=== PATIENT | female | born 1980 | race American Indian/Alaskan Native ===

== ENCOUNTER 2021-03-13 12:35 | Inpatient (IN) | payer OTHER ==
[2021-03-13 14:05] LABS: Hemoglobin 12.2 gm/dl (10.1-14.3); Mean Corpuscular HGB Conc 32 % (30-34); Mean Corpuscular Volume 91 fl (79-97); Platelet Count 310 K/mm3 (140-440); Red Blood Count 4.16 M/mm3 (3.65-5.03); Red Cell Distribution Width 13.7 % (13.2-15.2)
[2021-03-13 14:13] LABS: Bacteria,Urine 2+ /HPF (Negative); Bilirubin,Urine NEG (Negative); Blood,Urine NEG (Negative); Color,Urine Amber (Yellow); Mucus,Urine 3+ /HPF
[2021-03-13 14:21] LABS: Uric Acid 5.4 mg/dL (3.5-7.6)
[2021-03-13 14:23] LABS: Alanine Aminotransferase < 5 units/L (7-56)
--- NOTE | 2021-03-13 15:20 | History and Physical Report ---
History of Present Illness Date of examination: 03/13/21 Chief complaint: IOL for gestation htn and polyhydramnios History of present illness: EDC Calculations by LMP: 03/20/2021 Past History : 4 Term Births: 2 Premature Births: 0 Living Children: 2 Para: 2 Mult. Births: 0 Prev : 0 Aborta: 1 Elect. Ab: 0 Spont. Ab: 1 Ectopics: 0 # 1 Delivery date: 09/11/2002 Weeks Gestation: 40 labor: no Delivery type: Hours of labor: 10 Anesthesia type: epidural Delivery location: DC Sex: Male weight: 6-9 Name: Mike # 2 Delivery date: 05/10/2008 Weeks Gestation: 40 labor: no Delivery type: Hours of labor: 10 Anesthesia type: IV meds Delivery location: DC Infant Sex: Female weight: 7-6 Name: Jasson # 3 Delivery date: 12/09/2019 Delivery type: SAB Comments: No D&C Past Medical History: Negative Past Medical History Past Surgical History: Negative Past Surgical History Family History Summary: Other Family Member - Has No Family History of Ovarvian Cancer - Entered On: 10/01/2020 Other Family Member - Has No Family History of Brain Cancer - Entered On: 10/01/2020 Other Family Member - Has Family History of Hypertension - Entered On: 12/02/2019 Other Family Member - Has Family History of CVA or Stroke - Entered On: 10/01/2020 Other Family Member - Has Family History of Coronary Heart Disease - Entered On: 10/01/2020 Other Family Member - Has Family History Breast Cancer - Entered On: 10/01/2020 Social History: Marital Status: Children: 2 Occupation: [employer] Risk Factors: Smoked Tobacco Use: Former smoker Cigarettes: Yes -- 1/2 pack(s) per day, Year started: 2013 Year quit: 2019 Years Since Last Quit: 1 Smokeless Tobacco Use: Never Passive smoke exposure: no Drug use: no HIV high-risk behavior: no Caffeine use: 0 drinks per day Alcohol use: no Exercise: yes Times per week: 5 Type of Exercise: walk Seatbelt use: 100 % Past Medical History 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 of genital herpes: no Genetic History ADVANCED MATERNAL AGE Congenital Heart Defect: Mom: no Dad: no Navneet Disease: Mom: no Dad: no Thalassemia Mom: no Dad: no Neural Tube Defect Mom: no Dad: no Down's Syndrome Mom: no Dad: no Trev-Sachs Mom: no Dad: no Sickle Cell Disease/Trait Mom: no Dad: no Hemophilia Mom: no Dad: no Muscular Dystrophy Mom: no Dad: no Cystic Fibrosis Mom: no Dad: no Will Chorea Mom: no Dad: no Mental Retardation Mom: no Dad: no Fragile X Mom: no Dad: no Other Genetic/Chromosomal Disorder Mom: no Dad: no Child w/other defect Mom: no Dad: no Enviromental Exposures Xray Exposure: no Medication, drug, or alcohol use since LMP: no Chemical/Other Exposure: no Exposure to Cat Liter: no Hx of Parvovirus (Fifth Disease): no Active Medications: None Current Allergies (reviewed today): No known allergies Past History Past Medical History: other (see HPI) Past Surgical History: other (see HPI) 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 (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) Family/Genetic History: other (see HPI) Social history: no significant social history - Obstetrical History Expected Date of Delivery: 03/20/21 Actual Gestation: 39 Week(s) 0 Day(s) : 4 Para: 2 Hx # Term Pregnancies: 2 Number of Pregnancies: 0 Spontaneous Abortions: 1 Induced : 0 Number of Living Children: 2 Medications and Allergies Allergies Allergy/AdvReac Type Severity Reaction Status Date / Time No Known Allergies Allergy Verified 03/13/21 12:55 Review of Systems All systems: negative - Vital Signs Vital signs: Vital Signs Pulse BP 100 H 130/88 03/13/21 12:58 03/13/21 12:58 Temp Pulse Resp BP Pulse Ox 97.8 F 97 H 20 127/86 98 03/13/21 12:59 03/13/21 15:16 03/13/21 12:59 03/13/21 15:16 03/13/21 15:16 - Physical Exam Breasts: Positive: normal Cardiovascular: Regular rate Lungs: Positive: Normal air movement Abdomen: Positive: normal appearance, soft Genitourinary (Female): Positive: normal external genitalia, normal perenium Vulva: both: normal Vagina: Positive: normal moisture Uterus: Positive: normal size - Obstetrical FHR: auscultation normal Uterine Contraction Monitor Mode: External Cervical Dilatation: 0 Cervical Effacement Percentage: 0 station: -3 Uterine Contraction Frequency (min): 2-3 Uterine Contraction Duration: 60 Uterine Contraction Pattern: Regular Uterine Tone Measurement Phase: Contraction Uterine Contraction Intensity: Mild Results Result Diagrams: 03/13/21 Unknown 03/13/21 Unknown Abnormal lab results 03/13/21 03/13/21 03/13/21 Range/Units Unknown Unknown Unknown WBC 11.3 H (4.5-11.0) K/mm3 ALT < 5 L (7-56) units/L Lactate Dehydrogenase 212 H (91-180) units/L Urine WBC (Auto) 16.0 H (0.0-6.0) /HPF U Epithel Cells (Auto) 25.0 H (0-13.0) /HPF All other labs normal. Assessment and Plan 40y/o @ 39+0 weeks, followed by [facility]. GBS NEG. regular ctx noted on toco. Pt has not had any food or drink but juice with breakfast this morning. Will give ivf bolus and if ctx decrease in frequency, will place cervidil. If ctx remain frequent, will do low dose pitocin tonight. Patient reports labors with first 2 children were 3-4hrs. Discussed serial IOL w/ cervical ripening and close observation of b/p. discussed mag sulfate if indicated. Pain management options also reviewed. All questions addressed. - Patient Problems (1) Gestational hypertension Current Visit: Yes Status: Acute Qualifiers: Trimester: third trimester Qualified Code(s): O13.3 - Gestational [-induced] hypertension without significant proteinuria, third trimester (2) Polyhydramnios Current Visit: Yes Status: Acute Qualifiers: Fetus number: single or unspecified fetus Trimester: third trimester Qual ified Code(s): O40.3XX0 - Polyhydramnios, third trimester, not applicable or unspecified (3) 39 weeks gestation of Current Visit: Yes Status: Acute (4) Circumvallate placenta Current Visit: Yes Status: Acute Qualifiers: Trimester: third trimester Qualified Code(s): O43.113 - Circumvallate placenta, third trimester
[2021-03-13] MEDS ORDERED: LOPERAMIDE 2 MG CAP PO PRN (16:00)
[2021-03-13] MEDS ORDERED: OXYTOCIN 10 UNIT/1 ML INJ IM PRN (16:00)
[2021-03-13] MEDS ORDERED: miSOPROStol 200 MCG TAB PR PRN (16:00)
[2021-03-13] MEDS ORDERED: ePHEDrine SULFATE 50 MG/1 ML INJ IV PRN (16:00)
[2021-03-13] MEDS ORDERED: TERBUTALINE 1 MG/1 ML INJ SUB-Q PRN (16:00)
[2021-03-13] MEDS ORDERED: ONDANSETRON 4 MG/2 ML INJ IV PRN (16:00)
[2021-03-13] MEDS ORDERED: CARBOPROST TROMETHAMINE 250 MCG/1 ML INJ IM PRN (16:00)
[2021-03-13] MEDS ORDERED: MINERAL OIL 30 ML ORAL LIQD PO PRN (16:00)
[2021-03-13] MEDS ORDERED: DINOPROSTONE 10 MG VAG SUPP VG SCH (16:00)
[2021-03-13] MEDS ORDERED: LIDOCAINE (2%) 20 MG/1 ML VIAL 20 ML MDV INFILTRATI SCH (16:00)
[2021-03-13] MEDS ORDERED: OXYTOCIN DRIP 30 UNITS/500 ML BAG IV SCH ×2 (16:00→21:00)
[2021-03-13] MEDS ORDERED: ACETAMINOPHEN 325 MG TAB PO PRN (16:00)
[2021-03-13] MEDS ORDERED: ZOLPIDEM 5 MG TAB PO ONE ×2 (16:54→23:05)
[2021-03-13 18:26] LABS: Hematocrit 34.6 % (30.3-42.9); Hemoglobin 11.3 gm/dl (10.1-14.3); Mean Corpuscular HGB Conc 33 % (30-34); Mean Corpuscular Volume 93 fl (79-97); Platelet Count 271 K/mm3 (140-440); Red Blood Count 3.73 M/mm3 (3.65-5.03); Red Cell Distribution Width 13.8 % (13.2-15.2)
[2021-03-13] MEDS: LACTATED RINGERS 1,000 ML IV SCH (18:47)
[2021-03-13 19:06] LABS: Hepatitis B Surface Antigen Non-Reactive (Negative); Hepatitis C Virus Antibody Non-Reactive (NonReactive)
[2021-03-14] MEDS: LACTATED RINGERS 1,000 ML IV SCH ×3 (01:41→22:57)
--- NOTE | 2021-03-14 07:44 | Progress Note ---
<OTIS LEES - Last Filed: 03/14/21 08:15> Assessment and Plan Pt sitting in bed, denies complaints; reports tolerable contractions felt every few minutes. Risks vs benefits of ROM discussed with pt. Pain management options reviewed. Pitocin currently infusing IV, RN to manage per ordered protocol. Anticipate . - Patient Problems (1) 39 weeks gestation of Current Visit: Yes Status: Acute (2) Circumvallate placenta Current Visit: Yes Status: Acute Qualifiers: Trimester: third trimester Qualified Code(s): O43.113 - Circumvallate placenta, third trimester (3) Gestational hypertension Current Visit: Yes Status: Acute Qualifiers: Trimester: third trimester Qualified Code(s): O13.3 - Gestational [-induced] hypertension without significant proteinuria, third trimester (4) Polyhydramnios Current Visit: Yes Status: Acute Qualifiers: Fetus number: single or unspecified fetus Trimester: third trimester Qualified Code(s): O40.3XX0 - Polyhydramnios, third trimester, not applicable or unspecified Subjective - Subjective Date of service: 03/14/21 Principal diagnosis: IOL @ 39.1 wks, GHTN, Polyhydramnios Patient reports: movement normal, contractions (pt reports tolerating contractions well at this time with slow deep breathing and declines pain interventions), other (denies VALDEZ, vision changes, and chest pain), no new complaints, no loss of fluid, no vaginal bleeding Objective - Vital Signs Vital Signs: Vital Signs - 12hr 03/13/21 03/13/21 03/13/21 19:48 19:53 19:58 Temperature Pulse Rate 98 H 119 H 114 H Respiratory Rate Blood Pressure O2 Sat by Pulse 99 99 100 Oximetry 03/13/21 03/13/21 03/13/21 20:03 20:08 20:13 Temperature Pulse Rate 122 H 158 H 144 H Respiratory Rate Blood Pressure O2 Sat by Pulse 99 98 99 Oximetry 03/13/21 03/13/21 03/13/21 20:18 20:23 20:28 Temperature Pulse Rate 82 95 H 97 H Respiratory Rate Blood Pressure O2 Sat by Pulse 100 99 99 Oximetry 03/13/21 03/13/21 03/13/21 20:33 20:39 20:44 Temperature Pulse Rate 137 H 134 H 176 H Respiratory Rate Blood Pressure O2 Sat by Pulse 98 100 99 Oximetry 03/13/21 03/13/21 03/13/21 20:49 20:54 20:59 Temperature Pulse Rate 152 H 150 H 92 H Respiratory Rate Blood Pressure O2 Sat by Pulse 99 99 99 Oximetry 03/13/21 03/13/21 03/13/21 21:04 21:09 21:14 Temperature Pulse Rate 88 90 91 H Respiratory Rate Blood Pressure O2 Sat by Pulse 97 99 98 Oximetry 03/13/21 03/13/21 03/13/21 21:19 21:24 21:29 Temperature Pulse Rate 146 H 130 H 102 H Respiratory Rate Blood Pressure O2 Sat by Pulse 98 99 99 Oximetry 03/13/21 03/13/21 03/13/21 21:34 21:39 21:44 Temperature Pulse Rate 148 H 123 H 108 H Respiratory Rate Blood Pressure O2 Sat by Pulse 99 99 99 Oximetry 03/13/21 03/13/21 03/13/21 21:49 21:54 21:58 Temperature Pulse Rate 155 H 129 H 91 H Respiratory Rate Blood Pressure 131/78 O2 Sat by Pulse 99 99 Oximetry 03/13/21 03/13/21 03/13/21 21:59 22:04 22:09 Temperature Pulse Rate 125 H 97 H 106 H Respiratory Rate Blood Pressure O2 Sat by Pulse 99 99 99 Oximetry 03/13/21 03/13/21 03/13/21 22:14 22:19 22:24 Temperature Pulse Rate 152 H 119 H 128 H Respiratory Rate Blood Pressure O2 Sat by Pulse 99 99 99 Oximetry 03/13/21 03/13/21 03/13/21 22:29 22:34 22:39 Temperature Pulse Rate 115 H 114 H 122 H Respiratory Rate Blood Pressure O2 Sat by Pulse 99 99 98 Oximetry 03/13/21 03/13/21 03/13/21 22:44 22:49 22:54 Temperature Pulse Rate 99 H 132 H 130 H Respiratory Rate Blood Pressure O2 Sat by Pulse 98 99 98 Oximetry 03/13/21 03/13/21 03/13/21 22:59 23:01 23:04 Temperature Pulse Rate 143 H 125 H 88 Respiratory Rate Blood Pressure 137/86 O2 Sat by Pulse 99 98 Oximetry 03/13/21 03/13/21 03/13/21 23:09 23:14 23:19 Temperature Pulse Rate 97 H 148 H 125 H Respiratory Rate Blood Pressure O2 Sat by Pulse 98 99 100 Oximetry 03/13/21 03/13/21 03/13/21 23:24 23:29 23:34 Temperature Pulse Rate 101 H 108 H 123 H Respiratory Rate Blood Pressure O2 Sat by Pulse 99 99 99 Oximetry 03/13/21 03/13/21 03/13/21 23:39 23:44 23:49 Temperature Pulse Rate 104 H 112 H 114 H Respiratory Rate Blood Pressure O2 Sat by Pulse 97 98 98 Oximetry 03/13/21 03/13/21 03/13/21 23:54 23:55 23:59 Temperature Pulse Rate 125 H 105 H 116 H Respiratory Rate Blood Pressure O2 Sat by Pulse 98 94 98 Oximetry 03/14/21 03/14/21 03/14/21 00:00 00:04 00:09 Temperature 98.1 F Pulse Rate 111 H 117 H 114 H Respiratory 18 Rate Blood Pressure 128/82 O2 Sat by Pulse 98 98 Oximetry 03/14/21 03/14/21 03/14/21 00:14 00:19 00:24 Temperature Pulse Rate 113 H 113 H 102 H Respiratory Rate Blood Pressure O2 Sat by Pulse 99 98 100 Oximetry 03/14/21 03/14/21 03/14/21 00:38 00:43 00:48 Temperature Pulse Rate 132 H 106 H 119 H Respiratory Rate Blood Pressure O2 Sat by Pulse 99 98 99 Oximetry 03/14/21 03/14/21 03/14/21 00:53 00:58 01:00 Temperature Pulse Rate 122 H 110 H 123 H Respiratory Rate Blood Pressure 124/82 O2 Sat by Pulse 98 98 Oximetry 03/14/21 03/14/21 03/14/21 01:03 01:08 01:13 Temperature Pulse Rate 104 H 118 H 122 H Respiratory Rate Blood Pressure O2 Sat by Pulse 98 98 98 Oximetry 03/14/21 03/14/21 03/14/21 01:18 01:30 01:35 Temperature Pulse Rate 129 H 121 H 107 H Respiratory Rate Blood Pressure O2 Sat by Pulse 97 100 97 Oximetry 03/14/21 03/14/21 03/14/21 01:40 01:45 01:50 Temperature Pulse Rate 125 H 111 H 96 H Respiratory Rate Blood Pressure O2 Sat by Pulse 98 98 97 Oximetry 06/03/21 06/03/21 06/03/21 01:55 02:00 02:05 Temperature Pulse Rate 99 H 119 H 109 H Respiratory Rate Blood Pressure 129/81 O2 Sat by Pulse 98 98 98 Oximetry 03/14/21 03/14/21 03/14/21 02:10 02:15 02:20 Temperature Pulse Rate 101 H 108 H 99 H Respiratory Rate Blood Pressure O2 Sat by Pulse 98 98 98 Oximetry 03/14/21 03/14/21 03/14/21 02:25 02:30 02:35 Temperature Pulse Rate 101 H 118 H 98 H Respiratory Rate Blood Pressure O2 Sat by Pulse 98 98 99 Oximetry 03/14/21 03/14/21 03/14/21 02:40 02:45 02:50 Temperature Pulse Rate 101 H 105 H 108 H Respiratory Rate Blood Pressure O2 Sat by Pulse 97 98 99 Oximetry 03/14/21 03/14/21 03/14/21 02:55 03:00 03:05 Temperature Pulse Rate 97 H 97 H 97 H Respiratory Rate Blood Pressure O2 Sat by Pulse 98 99 98 Oximetry 03/14/21 03/14/21 03/14/21 03:07 03:10 03:15 Temperature Pulse Rate 109 H 111 H 91 H Respiratory Rate Blood Pressure 118/78 O2 Sat by Pulse 98 98 Oximetry 03/14/21 03/14/21 03/14/21 03:20 03:25 03:28 Temperature Pulse Rate 102 H 92 H 114 H Respiratory Rate Blood Pressure O2 Sat by Pulse 97 100 91 Oximetry 03/14/21 03/14/21 03/14/21 03:30 03:42 03:47 Temperature Pulse Rate 98 H 102 H 94 H Respiratory Rate Blood Pressure O2 Sat by Pulse 98 98 99 Oximetry 03/14/21 03/14/21 03/14/21 03:52 03:57 04:00 Temperature 98.3 F Pulse Rate 93 H 129 H Respiratory 18 Rate Blood Pressure O2 Sat by Pulse 98 98 Oximetry 03/14/21 03/14/21 03/14/21 04:01 04:02 04:07 Temperature Pulse Rate 94 H 91 H 102 H Respiratory Rate Blood Pressure 141/90 O2 Sat by Pulse 99 97 Oximetry 03/14/21 03/14/21 03/14/21 04:12 04:17 04:22 Temperature Pulse Rate 83 112 H 101 H Respiratory Rate Blood Pressure O2 Sat by Pulse 99 99 96 Oximetry 03/14/21 03/14/21 03/14/21 04:27 04:32 04:37 Temperature Pulse Rate 95 H 131 H 107 H Respiratory Rate Blood Pressure O2 Sat by Pulse 98 99 99 Oximetry 03/14/21 03/14/21 03/14/21 04:42 04:47 04:52 Temperature Pulse Rate 125 H 95 H 110 H Respiratory Rate Blood Pressure O2 Sat by Pulse 98 96 97 Oximetry 03/14/21 03/14/21 03/14/21 04:57 05:00 05:02 Temperature Pulse Rate 94 H 141 H 106 H Respiratory Rate Blood Pressure 132/85 O2 Sat by Pulse 96 98 Oximetry 03/14/21 03/14/21 03/14/21 05:07 05:12 05:17 Temperature Pulse Rate 67 88 106 H Respiratory Rate Blood Pressure O2 Sat by Pulse 98 99 98 Oximetry 03/14/21 03/14/21 03/14/21 05:22 05:27 05:32 Temperature Pulse Rate 103 H 105 H 94 H Respiratory Rate Blood Pressure O2 Sat by Pulse 98 98 97 Oximetry 03/14/21 03/14/21 03/14/21 05:37 05:39 05:42 Temperature Pulse Rate 127 H 89 85 Respiratory Rate Blood Pressure O2 Sat by Pulse 98 94 93 Oximetry 03/14/21 03/14/21 03/14/21 05:46 05:47 05:52 Temperature Pulse Rate 82 108 H 76 Respiratory Rate Blood Pressure O2 Sat by Pulse 93 97 99 Oximetry 03/14/21 03/14/21 03/14/21 05:57 06:00 06:02 Temperature Pulse Rate 128 H 82 102 H Respiratory Rate Blood Pressure 134/74 O2 Sat by Pulse 97 99 Oximetry 03/14/21 03/14/21 03/14/21 06:07 06:12 06:17 Temperature Pulse Rate 102 H 90 103 H Respiratory Rate Blood Pressure O2 Sat by Pulse 100 99 99 Oximetry 03/14/21 03/14/21 03/14/21 06:22 06:27 06:32 Temperature Pulse Rate 121 H 88 66 Respiratory Rate Blood Pressure O2 Sat by Pulse 100 98 99 Oximetry 03/14/21 03/14/21 03/14/21 06:37 06:42 06:47 Temperature Pulse Rate 143 H 140 H 139 H Respiratory Rate Blood Pressure O2 Sat by Pulse 99 99 100 Oximetry 03/14/21 03/14/21 03/14/21 06:59 07:01 07:04 Temperature Pulse Rate 108 H 120 H 115 H Respiratory Rate Blood Pressure 124/82 O2 Sat by Pulse 100 98 Oximetry 03/14/21 03/14/21 03/14/21 07:09 07:14 07:19 Temperature Pulse Rate 87 145 H 75 Respiratory Rate Blood Pressure O2 Sat by Pulse 99 99 100 Oximetry 03/14/21 03/14/21 03/14/21 07:24 07:29 07:34 Temperature Pulse Rate 95 H 146 H 143 H Respiratory Rate Blood Pressure O2 Sat by Pulse 100 98 98 Oximetry 03/14/21 07:39 Temperature Pulse Rate 143 H Respiratory Rate Blood Pressure O2 Sat by Pulse 99 Oximetry - Exam Breasts: deferred Cardiovascular: Regular rate Lungs: Normal air movement Abdomen: Present: normal appearance, soft Uterus: Present: normal. Absent: tenderness FHR: category 1 Uterine Contraction Monitor Mode: External Cervical Dilatation: 2 (per RN) Uterine Contraction Frequency (min): 2-3 Uterine Contraction Pattern: Regular Uterine Tone Measurement Phase: Contraction Uterine Contraction Intensity: Mild Extremities: normal Deep Tendon Reflex Grade: Normal +2 - Labs Labs: Abnormal Labs 03/13/21 03/13/21 03/13/21 18:12 Unknown Unknown WBC 11.4 H 11.3 H ALT Lactate Dehydrogenase Urine WBC (Auto) 16.0 H U Epithel Cells (Auto) 25.0 H 03/13/21 Unknown WBC ALT < 5 L Lactate Dehydrogenase 212 H Urine WBC (Auto) U Epithel Cells (Auto) Laboratory Results - last 24 hr 03/13/21 03/13/21 03/13/21 18:12 18:12 18:12 WBC 11.4 H RBC 3.73 Hgb 11.3 Hct 34.6 MCV 93 MCH 30 MCHC 33 RDW 13.8 Plt Count 271 Creatinine Estimated GFR Uric Acid AST ALT Lactate Dehydrogenase Urine Color Urine Turbidity Urine pH Ur Specific [place] Urine Protein Urine Glucose (UA) Urine Ketones Urine Blood Urine Nitrite Urine Bilirubin Urine Urobilinogen Ur Leukocyte Esterase Urine WBC (Auto) Urine RBC (Auto) U Epithel Cells (Auto) Urine Bacteria (Auto) Urine Mucus Syphilis IgG Antibody Nonreactive Hepatitis A IgM Ab Hep Bs Antigen Hep B Core IgM Ab Hepatitis C Antibody HIV 1&2 Antibody Rapid HIV P24 Antigen Blood Type O POSITIVE Antibody Screen Negative 03/13/21 03/13/21 03/13/21 18:12 Unknown Unknown WBC 11.3 H RBC 4.16 Hgb 12.2 Hct 38.0 MCV 91 MCH 29 MCHC 32 RDW 13.7 Plt Count 310 Creatinine Estimated GFR Uric Acid AST ALT Lactate Dehydrogenase Urine Color [place] Urine Turbidity Cloudy Urine pH 5.0 Ur Specific [place] 1.027 Urine Protein 100 mg/dl Urine Glucose (UA) Neg Urine Ketones Neg Urine Blood Neg Urine Nitrite Neg Urine Bilirubin Neg Urine Urobilinogen 2.0 Ur Leukocyte Esterase Mod Urine WBC (Auto) 16.0 H Urine RBC (Auto) 2.0 U Epithel Cells (Auto) 25.0 H Urine Bacteria (Auto) 2+ Urine Mucus 3+ Syphilis IgG Antibody Hepatitis A IgM Ab Hep Bs Antigen Hep B Core IgM Ab Hepatitis C Antibody HIV 1&2 Antibody Rapid Non react HIV P24 Antigen Non react Blood Type Antibody Screen 03/13/21 03/13/21 Unknown Unknown WBC RBC Hgb Hct MCV MCH MCHC RDW Plt Count Creatinine 0.7 Estimated GFR > 60 Uric Acid 5.4 AST 21 ALT < 5 L Lactate Dehydrogenase 212 H Urine Color Urine Turbidity Urine pH Ur Specific [place] Urine Protein Urine Glucose (UA) Urine Ketones Urine Blood Urine Nitrite Urine Bilirubin Urine Urobilinogen Ur Leukocyte Esterase Urine WBC (Auto) Urine RBC (Auto) U Epithel Cells (Auto) Urine Bacteria (Auto) Urine Mucus Syphilis IgG Antibody Hepatitis A IgM Ab Non-reactive Hep Bs Antigen Non-reactive Hep B Core IgM Ab Non-reactive Hepatitis C Antibody Non-reactive HIV 1&2 Antibody Rapid HIV P24 Antigen Blood Type Antibody Screen <ADALGISA TAM - Last Filed: 03/14/21 09:44> Assessment and Plan Chart reviewed. Cervix 11/10/-3 FHT's cat 1, UC's 1.5-3min, mild-moderate EFW difficult to assess d/t poly, patient feels efw ~ same as her second baby Serial IOL, GHTN/Preeclampsia explained. Options for IOL discussed. She did not get Cervidil and Pitocin was only at 2mu/min d/t UC's overnight. Options reviewed with patient: continue IOL/SAIMA with placement of Cook catheter and pitocin and C/S. Risk associated with delivery were discussed, including but not limited to, bleeding that may require blood transfusion, infection that may be life threatening, injury to adjacent organs specifically bowel or bladder that may require further surgeries, or major vascular injury. She was also informed that when she has had a delivery she may require repeat deliveries for all subsequent pregnancies. She desires sterilization. However at this time she agrees to placement of Cook catheter and Pitocin. Risk with Cook catheter placement were explained questions were encouraged and answered she voiced understanding desires to proceed with placement of Pitocin. Objective - Vital Signs Vital Signs: Vital Signs - 12hr 03/13/21 03/13/21 03/13/21 21:39 21:44 21:49 Temperature Pulse Rate 123 H 108 H 155 H Respiratory Rate Blood Pressure Blood Pressure [Right] O2 Sat by Pulse 99 99 99 Oximetry 03/13/21 03/13/21 03/13/21 21:54 21:58 21:59 Temperature Pulse Rate 129 H 91 H 125 H Respiratory Rate Blood Pressure 131/78 Blood Pressure [Right] O2 Sat by Pulse 99 99 Oximetry 03/13/21 03/13/21 03/13/21 22:04 22:09 22:14 Temperature Pulse Rate 97 H 106 H 152 H Respiratory Rate Blood Pressure Blood Pressure [Right] O2 Sat by Pulse 99 99 99 Oximetry 03/13/21 03/13/21 03/13/21 22:19 22:24 22:29 Temperature Pulse Rate 119 H 128 H 115 H Respiratory Rate Blood Pressure Blood Pressure [Right] O2 Sat by Pulse 99 99 99 Oximetry 03/13/21 03/13/21 03/13/21 22:34 22:39 22:44 Temperature Pulse Rate 114 H 122 H 99 H Respiratory Rate Blood Pressure Blood Pressure [Right] O2 Sat by Pulse 99 98 98 Oximetry 03/13/21 03/13/21 03/13/21 22:49 22:54 22:59 Temperature Pulse Rate 132 H 130 H 143 H Respiratory Rate Blood Pressure Blood Pressure [Right] O2 Sat by Pulse 99 98 99 Oximetry 03/13/21 03/13/21 03/13/21 23:01 23:04 23:09 Temperature Pulse Rate 125 H 88 97 H Respiratory Rate Blood Pressure 137/86 Blood Pressure [Right] O2 Sat by Pulse 98 98 Oximetry 03/13/21 03/13/21 03/13/21 23:14 23:19 23:24 Temperature Pulse Rate 148 H 125 H 101 H Respiratory Rate Blood Pressure Blood Pressure [Right] O2 Sat by Pulse 99 100 99 Oximetry 03/13/21 03/13/21 03/13/21 23:29 23:34 23:39 Temperature Pulse Rate 108 H 123 H 104 H Respiratory Rate Blood Pressure Blood Pressure [Right] O2 Sat by Pulse 99 99 97 Oximetry 03/13/21 03/13/21 03/13/21 23:44 23:49 23:54 Temperature Pulse Rate 112 H 114 H 125 H Respiratory Rate Blood Pressure Blood Pressure [Right] O2 Sat by Pulse 98 98 98 Oximetry 03/13/21 03/13/21 03/14/21 23:55 23:59 00:00 Temperature 98.1 F Pulse Rate 105 H 116 H 111 H Respiratory 18 Rate Blood Pressure 128/82 Blood Pressure [Right] O2 Sat by Pulse 94 98 Oximetry 03/14/21 03/14/21 03/14/21 00:04 00:09 00:14 Temperature Pulse Rate 117 H 114 H 113 H Respiratory Rate Blood Pressure Blood Pressure [Right] O2 Sat by Pulse 98 98 99 Oximetry 03/14/21 03/14/21 03/14/21 00:19 00:24 00:38 Temperature Pulse Rate 113 H 102 H 132 H Respiratory Rate Blood Pressure Blood Pressure [Right] O2 Sat by Pulse 98 100 99 Oximetry 03/14/21 03/14/21 03/14/21 00:43 00:48 00:53 Temperature Pulse Rate 106 H 119 H 122 H Respiratory Rate Blood Pressure Blood Pressure [Right] O2 Sat by Pulse 98 99 98 Oximetry 03/14/21 03/14/21 03/14/21 00:58 01:00 01:03 Temperature Pulse Rate 110 H 123 H 104 H Respiratory Rate Blood Pressure 124/82 Blood Pressure [Right] O2 Sat by Pulse 98 98 Oximetry 03/14/21 03/14/21 03/14/21 01:08 01:13 01:18 Temperature Pulse Rate 118 H 122 H 129 H Respiratory Rate Blood Pressure Blood Pressure [Right] O2 Sat by Pulse 98 98 97 Oximetry 03/14/21 03/14/21 03/14/21 01:30 01:35 01:40 Temperature Pulse Rate 121 H 107 H 125 H Respiratory Rate Blood Pressure Blood Pressure [Right] O2 Sat by Pulse 100 97 98 Oximetry 03/14/21 03/14/21 03/14/21 01:45 01:50 01:55 Temperature Pulse Rate 111 H 96 H 99 H Respiratory Rate Blood Pressure Blood Pressure [Right] O2 Sat by Pulse 98 97 98 Oximetry 03/14/21 03/14/21 03/14/21 02:00 02:05 02:10 Temperature Pulse Rate 119 H 109 H 101 H Respiratory Rate Blood Pressure 129/81 Blood Pressure [Right] O2 Sat by Pulse 98 98 98 Oximetry 03/14/21 03/14/21 03/14/21 02:15 02:20 02:25 Temperature Pulse Rate 108 H 99 H 101 H Respiratory Rate Blood Pressure Blood Pressure [Right] O2 Sat by Pulse 98 98 98 Oximetry 03/14/21 03/14/21 03/14/21 02:30 02:35 02:40 Temperature Pulse Rate 118 H 98 H 101 H Respiratory Rate Blood Pressure Blood Pressure [Right] O2 Sat by Pulse 98 99 97 Oximetry 03/14/21 03/14/21 03/14/21 02:45 02:50 02:55 Temperature Pulse Rate 105 H 108 H 97 H Respiratory Rate Blood Pressure Blood Pressure [Right] O2 Sat by Pulse 98 99 98 Oximetry 03/14/21 03/14/21 03/14/21 03:00 03:05 03:07 Temperature Pulse Rate 97 H 97 H 109 H Respiratory Rate Blood Pressure 118/78 Blood Pressure [Right] O2 Sat by Pulse 99 98 Oximetry 03/14/21 03/14/21 03/14/21 03:10 03:15 03:20 Temperature Pulse Rate 111 H 91 H 102 H Respiratory Rate Blood Pressure Blood Pressure [Right] O2 Sat by Pulse 98 98 97 Oximetry 03/14/21 03/14/21 03/14/21 03:25 03:28 03:30 Temperature Pulse Rate 92 H 114 H 98 H Respiratory Rate Blood Pressure Blood Pressure [Right] O2 Sat by Pulse 100 91 98 Oximetry 03/14/21 03/14/21 03/14/21 03:42 03:47 03:52 Temperature Pulse Rate 102 H 94 H 93 H Respiratory Rate Blood Pressure Blood Pressure [Right] O2 Sat by Pulse 98 99 98 Oximetry 03/14/21 03/14/21 03/14/21 03:57 04:00 04:01 Temperature 98.3 F Pulse Rate 129 H 94 H Respiratory 18 Rate Blood Pressure 141/90 Blood Pressure [Right] O2 Sat by Pulse 98 Oximetry 03/14/21 03/14/21 03/14/21 04:02 04:07 04:12 Temperature Pulse Rate 91 H 102 H 83 Respiratory Rate Blood Pressure Blood Pressure [Right] O2 Sat by Pulse 99 97 99 Oximetry 03/14/21 03/14/21 03/14/21 04:17 04:22 04:27 Temperature Pulse Rate 112 H 101 H 95 H Respiratory Rate Blood Pressure Blood Pressure [Right] O2 Sat by Pulse 99 96 98 Oximetry 03/14/21 03/14/21 03/14/21 04:32 04:37 04:42 Temperature Pulse Rate 131 H 107 H 125 H Respiratory Rate Blood Pressure Blood Pressure [Right] O2 Sat by Pulse 99 99 98 Oximetry 03/14/21 03/14/21 03/14/21 04:47 04:52 04:57 Temperature Pulse Rate 95 H 110 H 94 H Respiratory Rate Blood Pressure Blood Pressure [Right] O2 Sat by Pulse 96 97 96 Oximetry 03/14/21 03/14/21 03/14/21 05:00 05:02 05:07 Temperature Pulse Rate 141 H 106 H 67 Respiratory Rate Blood Pressure 132/85 Blood Pressure [Right] O2 Sat by Pulse 98 98 Oximetry 03/14/21 03/14/21 03/14/21 05:12 05:17 05:22 Temperature Pulse Rate 88 106 H 103 H Respiratory Rate Blood Pressure Blood Pressure [Right] O2 Sat by Pulse 99 98 98 Oximetry 03/14/21 03/14/21 03/14/21 05:27 05:32 05:37 Temperature Pulse Rate 105 H 94 H 127 H Respiratory Rate Blood Pressure Blood Pressure [Right] O2 Sat by Pulse 98 97 98 Oximetry 03/14/21 03/14/21 03/14/21 05:39 05:42 05:46 Temperature Pulse Rate 89 85 82 Respiratory Rate Blood Pressure Blood Pressure [Right] O2 Sat by Pulse 94 93 93 Oximetry 03/14/21 03/14/21 03/14/21 05:47 05:52 05:57 Temperature Pulse Rate 108 H 76 128 H Respiratory Rate Blood Pressure Blood Pressure [Right] O2 Sat by Pulse 97 99 97 Oximetry 03/14/21 03/14/21 03/14/21 06:00 06:02 06:07 Temperature Pulse Rate 82 102 H 102 H Respiratory Rate Blood Pressure 134/74 Blood Pressure [Right] O2 Sat by Pulse 99 100 Oximetry 03/14/21 03/14/21 03/14/21 06:12 06:17 06:22 Temperature Pulse Rate 90 103 H 121 H Respiratory Rate Blood Pressure Blood Pressure [Right] O2 Sat by Pulse 99 99 100 Oximetry 03/14/21 03/14/21 03/14/21 06:27 06:32 06:37 Temperature Pulse Rate 88 66 143 H Respiratory Rate Blood Pressure Blood Pressure [Right] O2 Sat by Pulse 98 99 99 Oximetry 03/14/21 03/14/21 03/14/21 06:42 06:47 06:59 Temperature Pulse Rate 140 H 139 H 108 H Respiratory Rate Blood Pressure Blood Pressure [Right] O2 Sat by Pulse 99 100 100 Oximetry 03/14/21 03/14/21 03/14/21 07:01 07:04 07:09 Temperature Pulse Rate 120 H 115 H 87 Respiratory Rate Blood Pressure 124/82 Blood Pressure [Right] O2 Sat by Pulse 98 99 Oximetry 03/14/21 03/14/21 03/14/21 07:14 07:19 07:24 Temperature Pulse Rate 145 H 75 95 H Respiratory Rate Blood Pressure Blood Pressure [Right] O2 Sat by Pulse 99 100 100 Oximetry 03/14/21 03/14/21 03/14/21 07:29 07:34 07:39 Temperature Pulse Rate 146 H 143 H 143 H Respiratory Rate Blood Pressure Blood Pressure [Right] O2 Sat by Pulse 98 98 99 Oximetry 03/14/21 03/14/21 03/14/21 07:44 07:49 07:54 Temperature Pulse Rate 134 H 129 H 113 H Respiratory Rate Blood Pressure Blood Pressure [Right] O2 Sat by Pulse 98 100 99 Oximetry 03/14/21 03/14/21 03/14/21 07:59 08:00 08:04 Temperature Pulse Rate 128 H 137 H 104 H Respiratory Rate Blood Pressure 122/94 Blood Pressure [Right] O2 Sat by Pulse 100 99 Oximetry 03/14/21 03/14/21 03/14/21 08:09 08:29 08:31 Temperature 98.8 F Pulse Rate 153 H 107 H Respiratory Rate Blood Pressure Blood Pressure [Right] O2 Sat by Pulse 100 95 Oximetry 03/14/21 03/14/21 03/14/21 08:34 08:38 08:39 Temperature 98 F Pulse Rate 126 H 87 97 H Respiratory 20 Rate Blood Pressure 155/88 Blood Pressure 155/88 [Right] O2 Sat by Pulse 100 99 98 Oximetry 03/14/21 03/14/21 03/14/21 08:44 08:49 08:54 Temperature Pulse Rate 116 H 142 H 75 Respiratory Rate Blood Pressure Blood Pressure [Right] O2 Sat by Pulse 98 98 99 Oximetry 03/14/21 03/14/21 03/14/21 08:59 09:01 09:04 Temperature Pulse Rate 157 H 104 H 77 Respiratory Rate Blood Pressure 120/85 Blood Pressure [Right] O2 Sat by Pulse 99 99 Oximetry 03/14/21 03/14/21 03/14/21 09:16 09:21 09:26 Temperature Pulse Rate 95 H 135 H 130 H Respiratory Rate Blood Pressure Blood Pressure [Right] O2 Sat by Pulse 100 99 100 Oximetry 03/14/21 03/14/21 09:31 09:36 Temperature Pulse Rate 93 H 98 H Respiratory Rate Blood Pressure Blood Pressure [Right] O2 Sat by Pulse 100 99 Oximetry - Labs Labs: Abnormal Labs 03/13/21 03/13/21 03/13/21 18:12 Unknown Unknown WBC 11.4 H 11.3 H ALT Lactate Dehydrogenase Urine WBC (Auto) 16.0 H U Epithel Cells (Auto) 25.0 H 03/13/21 Unknown WBC ALT < 5 L Lactate Dehydrogenase 212 H Urine WBC (Auto) U Epithel Cells (Auto) Laboratory Results - last 24 hr 03/13/21 03/13/21 03/13/21 18:12 18:12 18:12 WBC 11.4 H RBC 3.73 Hgb 11.3 Hct 34.6 MCV 93 MCH 30 MCHC 33 RDW 13.8 Plt Count 271 Creatinine Estimated GFR Uric Acid AST ALT Lactate Dehydrogenase Urine Color Urine Turbidity Urine pH Ur Specific [place] Urine Protein Urine Glucose (UA) Urine Ketones Urine Blood Urine Nitrite Urine Bilirubin Urine Urobilinogen Ur Leukocyte Esterase Urine WBC (Auto) Urine RBC (Auto) U Epithel Cells (Auto) Urine Bacteria (Auto) Urine Mucus Syphilis IgG Antibody Nonreactive Hepatitis A IgM Ab Hep Bs Antigen Hep B Core IgM Ab Hepatitis C Antibody HIV 1&2 Antibody Rapid HIV P24 Antigen Blood Type O POSITIVE Antibody Screen Negative 03/13/21 03/13/21 03/13/21 18:12 Unknown Unknown WBC 11.3 H RBC 4.16 Hgb 12.2 Hct 38.0 MCV 91 MCH 29 MCHC 32 RDW 13.7 Plt Count 310 Creatinine Estimated GFR Uric Acid AST ALT Lactate Dehydrogenase Urine Color [place] Urine Turbidity Cloudy Urine pH 5.0 Ur Specific [place] 1.027 Urine Protein 100 mg/dl Urine Glucose (UA) Neg Urine Ketones Neg Urine Blood Neg Urine Nitrite Neg Urine Bilirubin Neg Urine Urobilinogen 2.0 Ur Leukocyte Esterase Mod Urine WBC (Auto) 16.0 H Urine RBC (Auto) 2.0 U Epithel Cells (Auto) 25.0 H Urine Bacteria (Auto) 2+ Urine Mucus 3+ Syphilis IgG Antibody Hepatitis A IgM Ab Hep Bs Antigen Hep B Core IgM Ab Hepatitis C Antibody HIV 1&2 Antibody Rapid Non react HIV P24 Antigen Non react Blood Type Antibody Screen 03/13/21 03/13/21 Unknown Unknown WBC RBC Hgb Hct MCV MCH MCHC RDW Plt Count Creatinine 0.7 Estimated GFR > 60 Uric Acid 5.4 AST 21 ALT < 5 L Lactate Dehydrogenase 212 H Urine Color Urine Turbidity Urine pH Ur Specific [place] Urine Protein Urine Glucose (UA) Urine Ketones Urine Blood Urine Nitrite Urine Bilirubin Urine Urobilinogen Ur Leukocyte Esterase Urine WBC (Auto) Urine RBC (Auto) U Epithel Cells (Auto) Urine Bacteria (Auto) Urine Mucus Syphilis IgG Antibody Hepatitis A IgM Ab Non-reactive Hep Bs Antigen Non-reactive Hep B Core IgM Ab Non-reactive Hepatitis C Antibody Non-reactive HIV 1&2 Antibody Rapid HIV P24 Antigen Blood Type Antibody Screen
[2021-03-14] MEDS: fentaNYL 100 MCG/2 ML INJ IV PRN ×2 (12:32→16:02)
--- NOTE | 2021-03-14 13:29 | Event Note ---
Date: 03/14/21 Pt reports recent Fentanyl dose received and tolerating contractions well at this time; reports +rectal pressure. Lord bulb found in vagina mid expulsion, removed, with bloody show noted. SVE 3-4/thick/high. POC discussed with pt for continued Pitocin induction. RN updated. Anticipate
--- NOTE | 2021-03-14 19:43 | Event Note ---
Date: 03/14/21 Options for IOL discussed. She has been contraction too frequently to use Cervidil or to increase the pitocin sufficiently therefore would not use Cytotec. Discussed AROM. Discussed possible cord prolapse or cord compression that may require emergency C/?. She desires sterilization by salpingectomy. Consent reviewed. See previous c/s consultation note.
[2021-03-14] MEDS ORDERED: NalbUPHINE 10 MG/1 ML INJ IV PRN (19:58)
[2021-03-14] MEDS ORDERED: diphenhydrAMINE 50 MG/ML VIAL IV PRN (19:58)
[2021-03-14] MEDS ORDERED: NALOXONE 2 MG/2 ML INJ IV PRN (19:58)
[2021-03-14] MEDS ORDERED: LACTATED RINGERS 250 ML IV SOLN IV ONE (19:58)
[2021-03-14] MEDS ORDERED: fentaNYL-BUPIV 2 MCG/ML-0.125% 200 MCG/100 ML BAG EPIDURAL SCH (20:00)
--- NOTE | 2021-03-14 20:00 | Ultrasound Report ---
Obstetric ultrasound limited INDICATION: Prereduction confirm presentation TECHNIQUE: Real-time grayscale imaging performed. FINDINGS: Single intrauterine in the cephalic position. heart rate 137 bpm. Signer Name: Solo Ca MD Signed: 03/14/2021 7:55 PM Workstation Name: [id number]
--- NOTE | 2021-03-14 20:15 | Progress Note ---
Assessment and Plan - Patient Problems (1) 39 weeks gestation of Current Visit: Yes Status: Acute Plan to address problem: AROM copious clear fluid, ISE placed without difficulty however blood return noted when IUPC placed therefore it was removed, she currently has to wireless EFM therefore ISE removed, FHT's Cat 1. Will allow epidural and pitocin and close observation (2) Circumvallate placenta Current Visit: Yes Status: Acute Qualifiers: Trimester: third trimester Qualified Code(s): O43.113 - Circumvallate placenta, third trimester (3) Gestational hypertension Current Visit: Yes Status: Acute Qualifiers: Trimester: third trimester Qualified Code(s): O13.3 - Gestational [-induced] hypertension without significant proteinuria, third trimester (4) Polyhydramnios Current Visit: Yes Status: Acute Qualifiers: Fetus number: single or unspecified fetus Trimester: third trimester Qualified Code(s): O40.3XX0 - Polyhydramnios, third trimester, not applicable or unspecified (5) Sterilization Current Visit: Yes Status: Acute Plan to address problem: Consent signed 12/26/2020. Subjective - Subjective Date of service: 03/14/21 Principal diagnosis: IOL @ 39.1 wks, GHTN, Polyhydramnios Patient reports: movement normal, contractions (pt reports tolerating contractions well at this time with slow deep breathing and declines pain interventions), other (denies VALDEZ, vision changes, and chest pain or RUQ pain), no new complaints, no loss of fluid, no vaginal bleeding Objective - Vital Signs Vital Signs: Vital Signs - 12hr 03/14/21 03/14/21 03/14/21 08:09 08:29 08:31 Temperature 98.8 F Pulse Rate 153 H 107 H Respiratory Rate Blood Pressure Blood Pressure [Right] O2 Sat by Pulse 100 95 Oximetry 03/14/21 03/14/21 03/14/21 08:34 08:38 08:39 Temperature 98 F Pulse Rate 126 H 87 97 H Respiratory 20 Rate Blood Pressure 155/88 Blood Pressure 155/88 [Right] O2 Sat by Pulse 100 99 98 Oximetry 03/14/21 03/14/21 03/14/21 08:44 08:49 08:54 Temperature Pulse Rate 116 H 142 H 75 Respiratory Rate Blood Pressure Blood Pressure [Right] O2 Sat by Pulse 98 98 99 Oximetry 03/14/21 03/14/21 03/14/21 08:59 09:01 09:04 Temperature Pulse Rate 157 H 104 H 77 Respiratory Rate Blood Pressure 120/85 Blood Pressure [Right] O2 Sat by Pulse 99 99 Oximetry 03/14/21 03/14/21 03/14/21 09:16 09:21 09:26 Temperature Pulse Rate 95 H 135 H 130 H Respiratory Rate Blood Pressure Blood Pressure [Right] O2 Sat by Pulse 100 99 100 Oximetry 03/14/21 03/14/21 03/14/21 09:31 09:36 09:41 Temperature Pulse Rate 93 H 98 H 98 H Respiratory Rate Blood Pressure Blood Pressure [Right] O2 Sat by Pulse 100 99 100 Oximetry 03/14/21 03/14/21 03/14/21 09:46 10:00 10:07 Temperature Pulse Rate 125 H 101 H 97 H Respiratory Rate Blood Pressure 139/89 Blood Pressure [Right] O2 Sat by Pulse 100 100 Oximetry 03/14/21 03/14/21 03/14/21 10:12 10:17 10:25 Temperature Pulse Rate 113 H 110 H 115 H Respiratory Rate Blood Pressure Blood Pressure [Right] O2 Sat by Pulse 99 99 99 Oximetry 03/14/21 03/14/21 03/14/21 10:30 10:32 10:37 Temperature Pulse Rate 101 H 100 H 104 H Respiratory Rate Blood Pressure Blood Pressure [Right] O2 Sat by Pulse 100 100 99 Oximetry 03/14/21 03/14/21 03/14/21 10:42 10:47 10:52 Temperature Pulse Rate 110 H 92 H 94 H Respiratory Rate Blood Pressure Blood Pressure [Right] O2 Sat by Pulse 99 100 100 Oximetry 03/14/21 03/14/21 03/14/21 10:57 11:02 11:07 Temperature Pulse Rate 99 H 103 H 101 H Respiratory Rate Blood Pressure Blood Pressure [Right] O2 Sat by Pulse 100 100 100 Oximetry 03/14/21 03/14/21 03/14/21 11:12 11:20 11:23 Temperature Pulse Rate 96 H 94 H 101 H Respiratory Rate Blood Pressure 140/92 Blood Pressure [Right] O2 Sat by Pulse 100 100 Oximetry 03/14/21 03/14/21 03/14/21 11:25 11:30 11:35 Temperature Pulse Rate 100 H 102 H 96 H Respiratory Rate Blood Pressure Blood Pressure [Right] O2 Sat by Pulse 100 100 100 Oximetry 03/14/21 03/14/21 03/14/21 11:40 11:45 11:50 Temperature Pulse Rate 100 H 109 H 92 H Respiratory Rate Blood Pressure Blood Pressure [Right] O2 Sat by Pulse 100 99 99 Oximetry 03/14/21 03/14/21 03/14/21 11:55 12:00 12:05 Temperature Pulse Rate 90 99 H 138 H Respiratory Rate Blood Pressure Blood Pressure [Right] O2 Sat by Pulse 99 99 98 Oximetry 03/14/21 03/14/21 03/14/21 12:10 12:23 13:23 Temperature Pulse Rate 98 H 102 H 96 H Respiratory Rate Blood Pressure 127/84 130/86 Blood Pressure [Right] O2 Sat by Pulse 99 Oximetry 03/14/21 03/14/21 03/14/21 14:23 15:24 18:42 Temperature Pulse Rate 110 H 93 H 114 H Respiratory Rate Blood Pressure 126/87 114/64 140/85 Blood Pressure [Right] O2 Sat by Pulse Oximetry 03/14/21 03/14/21 03/14/21 19:09 19:39 20:05 Temperature Pulse Rate 99 H 111 H 138 H Respiratory Rate Blood Pressure 137/83 133/81 Blood Pressure [Right] O2 Sat by Pulse 83 L Oximetry - Exam Breasts: deferred Lungs: Normal air movement Abdomen: Present: soft. Absent: tenderness Vulva: both: normal Uterus: Present: fundal height above umbilicus. Absent: tenderness FHR: category 1 Uterine Contraction Monitor Mode: External Cervical Dilatation: 5 Cervical Effacement Percentage: 80 station: -1 Uterine Contraction Frequency (min): 5minutes Uterine Contraction Pattern: Irregular Extremities: edema (1) - Labs Labs: Abnormal Labs 03/13/21 03/13/21 03/13/21 18:12 Unknown Unknown WBC 11.4 H 11.3 H ALT Lactate Dehydrogenase Urine WBC (Auto) 16.0 H U Epithel Cells (Auto) 25.0 H 03/13/21 Unknown WBC ALT < 5 L Lactate Dehydrogenase 212 H Urine WBC (Auto) U Epithel Cells (Auto) Laboratory Results - last 24 hr 03/14/21 Unknown Coronavirus (PCR) Negative
--- NOTE | 2021-03-14 20:21 | Anesthesia Consultation ---
Anesthesia Consult and Med Hx Date of service: 03/14/21 - Airway Anesthetic Teeth Evaluation: Good ROM Head & Neck: Adequate Mental/Hyoid Distance: Adequate Mallampati Class: Class III Intubation Access Assessment: Possibly Difficult - Pulmonary Exam CTA: Yes - Cardiac Exam Cardiac Exam: RRR - Pre-Operative Health Status ASA Pre-Surgery Classification: ASA2 Proposed Anesthetic Plan: Epidural - Pulmonary Hx Smoking: No Hx Asthma: No COPD: No Hx Pneumonia: No Hx Sleep Apnea: No - Cardiovascular System Hx Hypertension: No Hx Heart Attack/AMI: No Hx Angina: No - Central Nervous System Hx Seizures: No Hx Psychiatric Problems: No - Gastrointestinal Hx Gastroesophageal Reflux Disease: No - Endocrine Hx Renal Disease: No Hx End Stage Renal Disease: No Hx Liver Disease: No Hx Insulin Dependent Diabetes: No Hx Non-Insulin Dependent Diabetes: No Hx Hypothyroidism: No Hx Hyperthyroidism: No - Hematic Hx Anemia: No Hx Sickle Cell Disease: No - Other Systems Hx Alcohol Use: No Hx Obesity: Yes
--- NOTE | 2021-03-14 20:22 | Progress Note ---
Labor Epidural - Labor Epidural Start Time: 20:07 Stop Time: 20:17 Performed by:: EMANUEL RAND Procedure: Patient is requesting epidural for labor and pain. H&P, labs were reviewed. Patient IDed, H&P reviewed, all questions and concerns were answered, and consent was signed. Timeout was performed at bedside. Patient in sitting position. Sterile prep and drape was performed. 3ml of 1% lidocaine skin wheal at L[3]- L [4]. 18-gauge holden epidural needle was advanced to loss of resistance with air technique 7cm. Negative CSF negative blood. Epidural catheter advanced to [12] centimeters. [negative] Aspiration [negative] test dose. Sterile dressing applied. Patient tolerated procedure.
--- NOTE | 2021-03-15 01:01 | Procedure Note ---
OB Delivery Note - Delivery Date of Delivery: 03/15/21 Portfolio Lead: OTIS LEES Estimated blood loss: 200cc - Vaginal Delivery presentation: vertex Delivery position: OA Intrapartum events: gestational hypertension Delivery induction: oxytocin Delivery augmentation: rupture of membranes Delivery monitor: external FHT, external uterine Route of delivery: Delivery placenta: spontaneous Delivery cord: nuchal cord, 3 umbilical vessels Episiotomy: none Delivery laceration: none Anesthesia: epidural - A at 1 minute: 8 at 5 minutes: 9 Gender: Female (6lbs 10oz)
[2021-03-15] MEDS ORDERED: diphenhydrAMINE 25 MG CAP PO PRN (02:43)
[2021-03-15] MEDS ORDERED: LANOLIN/ZINC/DIMETHICONE (LANSINOH) 7 GM TP PRN (02:43)
[2021-03-15] MEDS ORDERED: WITCH HAZEL/ GLYCERIN PAD TP PRN (02:43)
[2021-03-15] MEDS ORDERED: MAGNESIUM HYDROXIDE (MOM) ORAL LIQD UDC PO PRN (02:43)
[2021-03-15] MEDS ORDERED: ONDANSETRON 4 MG/2 ML INJ IV PRN (02:43)
[2021-03-15] MEDS ORDERED: PROMETHAZINE 25 MG TAB PO PRN (02:43)
[2021-03-15] MEDS ORDERED: BENZOCAINE/MENTHOL 20/0.5% TOP SPRAY 56 GM TP PRN (02:43)
[2021-03-15] MEDS: IBUPROFEN 800 MG TAB PO SCH ×2 (05:27→13:14)
--- NOTE | 2021-03-15 08:59 | Post Anesthesia Evaluation ---
- Post Anesthesia Evaluation Patient Participated: Yes Airway Patent: Yes Stable Respiratory Function: Yes Nausea/Vomiting: No Temp > 96.8F: Yes Pain Manageable: Yes Adequeate Hydration: Yes Anesthesia Complications: No Block Receding Appropriately: Yes Patient on Ventilator: No
--- NOTE | 2021-03-15 15:44 | Discharge Summary ---
Providers - Providers Date of Admission: 03/13/21 18:29 Date of discharge: 03/15/21 (Pt has a strong deisre to go home. ) Attending physician: ANTHONY HAGEN 03/15/21 02:43 Consult to Vinyl Flooring Installer [CONS] Routine Reason For Exam: assistance with , SNS Primary care physician: ANTHONY HAGEN Hospitalization Reason for admission: induction of labor (Due to gestational hypertension. ) Delivery: Episiotomy: none Laceration: none complications: none Discharge diagnosis: IUP at term delivered baby: female Pertinent studies: Pt has a strong desire to go home. Explained that she delivered after midnight so discharge will be in the AM. Pt agrees to discharge in AM. She as an IOL for gHTN. She denies VALDEZ, blurred vision, chest pain, spots before her eyes, shortness of breath and upper abdominal pain. Her blood pressure ranges have mostly been 113-130's/60-80's. Hospital course: S: Pt doing well. Ambulating, voiding, and passing flatus okay. BC: BTL. O: VSS. Fundus firm, minimal bleeding noted. H/H 12.2/38.0. A: 40 y.o. s/p , doing well , and is in good condition to be discharged home. P: Discharge home with instructions. To have blood pressure check in office in 1 week. To have visit in office in 4 weeks. Condition at discharge: Good Disposition: [id number] TO HOME OR SELFCARE Plan - Provider Discharge Summary Activity: routine, no sex for 6 weeks, no heavy lifting 4 weeks, no strenuous exercise Diet: routine Instructions: routine Additional instructions: [] Smoking cessation referral if applicable(refer to patient education folder for contact #) [] Refer to [facility]'s [facility] Booklet Call your doctor immediately for: * Fever > 100.5 * Heavy vaginal bleeding ( >1 pad per hour) * Severe persistent headache * Shortness of breath * Reddened, hot, painful area to leg or breast * Drainage or odor from incision. * Keep incision clean and dry at all times and follow doctor's instructions regarding bathing/showering Congratulations on your baby girl!! Please schedule a visit in the office in 1 week so that we may check your blood pressure. Your visit will be 4 weeks after that date. If you have VALDEZ, blurred vision, spots before your eyes, chest pain, shortness of breath, or upper abdominal pain, please call special collections librarian provider. If you have any questions or concerns after discharge, please do not hesitate to call the office at [phone]. - Follow up plan Follow up: ANTHONY HAGEN MD [Primary Care Provider] - 7 Days
[2021-03-15 16:12] LABS: Hematocrit 30.1 % (30.3-42.9); Hemoglobin 9.6 gm/dl (10.1-14.3)
[2021-03-16] MEDS: IBUPROFEN 800 MG TAB PO SCH ×3 (00:12→16:10)
[2021-03-17] MEDS: IBUPROFEN 800 MG TAB PO SCH ×2 (05:48→10:20)
[2021-03-17 08:20] VITALS: BP 141/85
== END 2021-03-17 10:40 | disposition home or self-care (01) | DRG 807 ==
LOC: NM 12:35 → APU 12:38 → NM 15:16 → LD 16:01 → OB 03-15 02:38
PROVIDERS: ADMIT Obstetrics & Gynecology; ATTEND Obstetrics & Gynecology
PROC: 3E033VJ Introduction of Other Hormone into Peripheral Vein, Percutaneous Approach (ICD-10-PCS; principal; 2021-03-14)
PROC: 3E0R3BZ Introduction of Anesthetic Agent into Spinal Canal, Percutaneous Approach (ICD-10-PCS; 2021-03-14)
PROC: 00HU33Z Insertion of Infusion Device into Spinal Canal, Percutaneous Approach (ICD-10-PCS; 2021-03-14)
PROC: 10E0XZZ Delivery of Products of Conception, External Approach (ICD-10-PCS; 2021-03-15)
DX: O13.4 Gestational [pregnancy-induced] hypertension without significant proteinuria, complicating childbirth (principal); Z37.0 Single live birth; Z3A.39 39 weeks gestation of pregnancy; O40.3XX0 Polyhydramnios, third trimester, not applicable or unspecified; O43.113 Circumvallate placenta, third trimester; O99.214 Obesity complicating childbirth; Z20.822 Contact with and (suspected) exposure to COVID-19
CPT/HCPCS: 36415; 76815; 80074; 81001; 82565; 83615; 84450; 84460; 84550; 85014; 85018; 85027; 86592; 86850; 86900; 86901; 87086; 87806; 88307; G0378; J2590; J3010; J7120; U0003